=== PATIENT | male | born 1990 | race Two or more races ===

== ENCOUNTER 2019-11-26 17:08 | Emergency (ER) | payer MEDICAID ==
[~2019-11-26] VITALS: Ht 175.3 cm; Wt 81.6 kg
--- NOTE | 2019-11-26 17:13 | NUR ---
ED Nurse Note: pt arrived with RA 34 due cp and altered level of consciousness. pt currently non responsive, but responds to painful stimuli
--- NOTE | 2019-11-26 17:13 | Emergency Room Report ---
History of Present Illness General Chief Complaint: Chest Pain Source: Patient, EMS Present Illness HPI Disclaimer: Please note that this report is being documented using DRAGON technology. This can lead to erroneous entry secondary to incorrect interpretation by the dictating instrument. HPI: 29-year-old male presents for evaluation of chest pain. Patient is somnolent and does not provide any significant history. He is pointing to his chest and holding a bag of clear emesis. He is dozing off intermittently during my exam. He states he started vomiting approximately 2 hours ago after which he started feeling a chest pressure over the mid sternum. It does not radiate. Denies numbness or tingling. He did report diaphoresis and severe nausea. He denies abdominal pain. Per EMS, they were called to home by the patient's . He was complaining of some midsternal chest pain and then found asleep on the couch, he was difficult to arouse. According to EMS, tried to wake him up several times and kept syncopizing. Found with stable vital signs though he was diaphoretic. denied any seizure history according to EMS. also stated the patient has no medical history and no takes no medications. PMH: None reported PSH: None reported Allergies: None reported Social Hx: Able to obtain from patient Allergies: Coded Allergies: No Known Allergies (Unverified , 11/26/19) Review of Systems All Other Systems: negative except mentioned in HPI Medical Decision Making Diagnostic Impression: Primary Impression: Chest pain Additional Impression: Amphetamine abuse ER Course This a 29-year-old male presenting to the emergency department for evaluation after syncopal episodes and feeling of chest pain. Differential includes is not limited to arrhythmia, ACS, dehydration, vasovagal syncope, orthostatic hypotension, gastritis, gastroenteritis, pancreatitis, alcohol abuse, drug use to name a few. IV lines established, saline bolus ordered. Patient treated with antiemetics. Broad labs ordered. EKG shows sinus rhythm with sinus arrhythmia and premature atrial complexes. Patient denies any history of cardiac or other medical conditions and takes no medications. Denies drug or alcohol use. 1830: Patient's heart rate within normal limits. EKG nonischemic. Cardiac enzymes negative. Labs largely within normal limits aside from slightly elevated white count and tach screen positive for amphetamines. Patient denies drug abuse and states he cannot account for how the amphetamines would have gotten in his system. He is feeling better though still complaining of some epigastric discomfort and GI cocktail was ordered. Patient is now asking to be discharged. He would like to call his and return home. I believe he is low risk for cardiogenic causes of chest pain at this time and likely his symptoms today are related to stimulant use. He is in stable condition and stable for outpatient follow-up. He has a PMD that he will call Thursday morning to arrange an appointment. We discussed reasons to return to the ED. He understands and agrees with this treatment plan. Laboratory Tests Test 11/26/19 17:15 11/26/19 17:55 White Blood Count 15.3 K/UL (4.8-10.8) H Red Blood Count 4.78 M/UL (4.70-6.10) Hemoglobin 15.7 G/DL (14.2-18.0) Hematocrit 44.0 % (42.0-52.0) Mean Corpuscular Volume 92 FL (80-99) Mean Corpuscular Hemoglobin 32.9 PG (27.0-31.0) H Mean Corpuscular Hemoglobin Concent 35.7 G/DL (32.0-36.0) Red Cell Distribution Width 11.8 % (11.6-14.8) Platelet Count 296 K/UL (150-450) Mean Platelet Volume 8.2 FL (6.5-10.1) Neutrophils (%) (Auto) 84.6 % (45.0-75.0) H Lymphocytes (%) (Auto) 9.7 % (20.0-45.0) L Monocytes (%) (Auto) 4.0 % (1.0-10.0) Eosinophils (%) (Auto) 0.8 % (0.0-3.0) Basophils (%) (Auto) 0.8 % (0.0-2.0) Sodium Level 142 MMOL/L (136-145) Potassium Level 3.9 MMOL/L (3.5-5.1) Chloride Level 106 MMOL/L (98-107) Carbon Dioxide Level 30 MMOL/L (21-32) Anion Gap 6 mmol/L (5-15) Blood Urea Nitrogen 3 mg/dL (7-18) L Creatinine 1.0 MG/DL (0.55-1.30) Estimated Glomerular Filtration Rate > 60 mL/min (>60) Glucose Level 124 MG/DL (74-106) H Calcium Level 9.1 MG/DL (8.5-10.1) Total Bilirubin 0.7 MG/DL (0.2-1.0) Aspartate Amino Transferase (AST) 25 U/L (15-37) Alanine Aminotransferase (ALT) 54 U/L (12-78) Alkaline Phosphatase 128 U/L (46-116) H Total Creatine Kinase 131 U/L (26-308) Creatine Kinase MB 1.1 NG/ML (0.0-3.6) Creatine Kinase MB Relative Index 0.8 Troponin I 0.000 ng/mL (0.000-0.056) Pro-B-Type Natriuretic Peptide 15 pg/mL (0-125) Total Protein 7.8 G/DL (6.4-8.2) Albumin 4.1 G/DL (3.4-5.0) Globulin 3.7 g/dL Albumin/Globulin Ratio 1.1 (1.0-2.7) Lipase 96 U/L (73-393) Serum Alcohol < 3 mg/dL Urine Color Pale yellow Urine Appearance Clear Urine pH 8.0 (4.5-8.0) Urine Specific Council 1.015 (1.005-1.035) Urine Protein Negative (NEGATIVE) Urine Glucose (UA) Negative (NEGATIVE) Urine Ketones 1+ (NEGATIVE) H Urine Blood Negative (NEGATIVE) Urine Nitrite Negative (NEGATIVE) Urine Bilirubin Negative (NEGATIVE) Urine Urobilinogen Normal MG/DL (0.0-1.0) Urine Leukocyte Esterase Negative (NEGATIVE) Urine Opiates Screen Negative (NEGATIVE) Urine Barbiturates Screen Negative (NEGATIVE) Phencyclidine (PCP) Screen Negative (NEGATIVE) Urine Amphetamines Screen Positive (NEGATIVE) H Urine Benzodiazepines Screen Negative (NEGATIVE) Urine Cocaine Screen Negative (NEGATIVE) Urine Marijuana (THC) Screen Negative (NEGATIVE) EKG Diagnostic Results EKG Time: 17:14 Rate: normal Rhythm: NSR Other Impression Sinus rhythm with normal axis. Premature atrial complexes. Normal intervals. No acute ST segment changes. Rhythm Strip Diag. Results Rhythm Strip Time: 14:17 EP Interpretation: yes Rate: 80s Rhythm: NSR, other - Premature atrial complexes Chest X-Ray Diagnostic Results Chest X-Ray Diagnostic Results : Chest X-Ray Ordered: Yes # of Views/Limited/Complete: 1 View Indication: Chest Pain Interpretation: no consolidation, no effusion, no pneumothorax, no acute cardiopulmonary disease Impression: No acute disease Electronically Signed by: Electronically signed by Dr. Harlan Ross Disposition: HOME, SELF-CARE Condition: Stable Scripts Ondansetron Odt* (ZOFRAN ODT*) 4 Mg Tab.rapdis 4 MG BC EVERY 6 HOURS PRN for Nausea & Vomiting, #10 TAB 0 Refills Prov: Harlan Ross MD 11/26/19 Harlan Ross MD Nov 26, 2019 17:13
[2019-11-26 17:14] VITALS: BP 135/86
--- NOTE | 2019-11-26 17:21 | NUR ---
ED Nurse Note: Pt was able to be aroused, pt reports have small amounts of alcohol earlier pt denies drug use. pt states his roberto called 911 bc he was throwing up
--- NOTE | 2019-11-26 17:23 | NUR ---
ED Nurse Note: xray at bedside
--- NOTE | 2019-11-26 17:51 | Diagnostic Imaging Report ---
History: CP Exam: XR CXR 1 VIEW Comparison: None available FINDINGS: Low lung volumes. The lungs are clear. The cardiac and mediastinal contours appear within limits. The visualized osseous structures appear within limits. IMPRESSION: Low lung volumes. No evidence of acute disease.
--- NOTE | 2019-11-26 17:55 | NUR ---
ED Nurse Note: Urine specimen obtained. sent to lab
[2019-11-26 18:03] LABS: BASOPHILS % (AUTO) 0.8 % (0.0-2.0); EOSINOPHILS % (AUTO) 0.8 % (0.0-3.0); HEMOGLOBIN 15.7 G/DL (14.2-18.0); LYMPHOCYTES % (AUTO) 9.7 % (20.0-45.0); MEAN CORPUSCULAR VOLUME 92 FL (80-99); NEUTROPHILS % (AUTO) 84.6 % (45.0-75.0); PLATELET COUNT 296 K/UL (150-450); RED BLOOD COUNT 4.78 M/UL (4.70-6.10); RED CELL DISTRIBUTION WIDTH 11.8 % (11.6-14.8); WHITE BLOOD COUNT 15.3 K/UL (4.8-10.8)
[2019-11-26 18:06] LABS: APPEARANCE,URINE CLEAR; COLOR,URINE PALE YELLOW
[2019-11-26 18:07] LABS: BILIRUBIN, URINE NEGATIVE (NEGATIVE); GLUCOSE, URINE (UA) NEGATIVE (NEGATIVE); KETONES,URINE 1+ (NEGATIVE); LEUKOCYTE ESTERASE ,URINE NEGATIVE (NEGATIVE); NITRITE,URINE NEGATIVE (NEGATIVE); PROTEIN,URINE NEGATIVE (NEGATIVE); UROBILINOGEN,URINE NORMAL MG/DL (0.0-1.0)
[2019-11-26 18:13] LABS: ANION GAP 6 mmol/L (5-15); BLOOD UREA NITROGEN 3 mg/dL (7-18); CALCIUM 9.1 MG/DL (8.5-10.1); CARBON DIOXIDE 30 MMOL/L (21-32); CHLORIDE 106 MMOL/L (98-107); POTASSIUM 3.9 MMOL/L (3.5-5.1); SODIUM 142 MMOL/L (136-145)
--- NOTE | 2019-11-26 18:25 | NUR ---
ED Nurse Note: Pt given water per pt request. pt able to ambulate to chair at bedside and sit upright.
[2019-11-26 18:28] LABS: ALANINE AMINOTRANSFERASE 54 U/L (12-78); ALBUMIN 4.1 G/DL (3.4-5.0); ALBUMIN/GLOBULIN RATIO 1.1 (1.0-2.7); ALKALINE PHOSPHATASE 128 U/L (46-116); ASPARTATE AMINO TRANSFERASE 25 U/L (15-37); BILIRUBIN,TOTAL 0.7 MG/DL (0.2-1.0); CKMB 1.1 NG/ML (0.0-3.6); CREATINE KINASE 131 U/L (26-308)
[2019-11-26] MEDS ORDERED: Dicyclomine HCl 10mg/5ml oral soln ORAL ONE (18:45)
[2019-11-26] MEDS ORDERED: Mylanta II UD 30ml ORAL ONE (18:45)
[2019-11-26] MEDS ORDERED: Lidocaine 2% Visc 15ml soln ORAL ONE (18:45)
[2019-11-26] MEDS ORDERED: ONDANSETRON ODT4 MG BC (18:53)
[2019-11-26 18:56] VITALS: BP 129/93
--- NOTE | 2019-11-26 18:56 | NUR ---
ER DISCHARGE NOTE: Patient is cleared to be discharged per ERMD, pt is aox4, on room air, with stable vital signs. pt was given dc instructions, pt was able to verbalize understanding, pt id band and iv site removed without complications. pt is able to ambulate with steady gait. pt took all belongings.
== END 2019-11-26 18:57 | disposition home or self-care (01) ==
LOC: EDBD 17:08 → EMR 17:32
DX: R07.9 Chest pain, unspecified (principal); F15.10 Other stimulant abuse, uncomplicated; I49.9 Cardiac arrhythmia, unspecified
CPT/HCPCS: 36415; 71045; 80053; 80307; 81003; 82550; 82553; 83690; 83880; 84484; 85025; 93005; 96361; 96374; 96375; G0480; J2405; J7030; S0028; Z7502; 99284